=== PATIENT | female | born 1980 | race Caucasian/White ===

== ENCOUNTER → 2023-09-10 12:47 | Outpatient (BNVA) | payer MEDICARE, SELFPAY | PROVIDERS: Visit Provider Podiatrist Foot & Ankle Surgery | DX: S90.852A Superficial foreign body, left foot, initial encounter; W22.8XXA Striking against or struck by other objects, initial encounter | CPT/HCPCS: 99204 ==

== ENCOUNTER 2023-09-16 07:25 | Day surgery (SDC) | payer MEDICARE, SELFPAY ==
[2023-09-16] VITALS (10 sets, daily range): BP systolic 101–154; BP diastolic 44–78; PULSE 50–70; RESP 16–20; TEMP 36.2–36.4; O2SAT 95–100; BMI 25.6
--- NOTE | 2023-09-16 | XR_ITS ---
WS: [id number] Exam: XR foot LT 2V [id number] Date/Time of Exam: 09/16/2023 12:00 AM Reason For Exam: OR PICS Comparison 09/04/2023 with outside radiographs of the LEFT foot. Intraoperative AP and lateral images of the LEFT hindfoot are submitted. Images depict successful rem oval of the metallic foreign body resembling that of a needle in the plantar soft tissues along the c alcaneus.
[2023-09-16] MEDS: gabapentin 300 mg Capsule PO (07:53)
[2023-09-16] MEDS: acetaminophen 1,000 MG/100 ML PIGGYBACK 400 MG IV (07:53)
[2023-09-16] MEDS: sodium chloride 0.9% 1,000 ML 30 ML IV (07:56)
[2023-09-16 08:00] LABS: OR HCG Qualitative Urine Negative (Negative)
--- NOTE | 2023-09-16 08:51 | ANES.PREANE2 ---
Pre-Anesthetic Assessment Height/Weight: Height 1.57 m Weight 63.503 kg Temp Pulse Resp BP Pulse Ox O2 Del Method 97.2 F L 66 16 154/67 99 Room Air 09/16/23 07:42 09/16/23 07:42 09/16/23 07:42 09/16/23 07:42 09/16/23 07:42 09/16/23 07:42 Preop Diagnosis: Foreign body left foot Operation Date: 09/16/23 09:15 Proposed Procedures p Foreign Body Removal/?Removal of deep foreign body left foot(Left) - Po Pacheco DPM Familial anesthetic complications: Nausea Was Beta Oliva taken within 24 hours: N/A Was Clonidine taken within 24 hours: N/A Last intake: Intake Last Liquid Date 09/15/23 Last Liquid Time 22:00 Last Solid Date 09/15/23 Last Solid Time 18:00 Social Tobacco and No alcohol Exam alert, oriented x 3, clear to auscultation bilaterally and regular rate & rhythm Airway Mallampati: Class I Dentition: false Anesthetic Plan ASA status: 1 Anesthesia: MAC Risk of > 500 ml blood loss (7ml/kg in children): No Medications/Allergies Home Medications Medication Instructions Recorded Confirmed Last Taken Type No Known Home Medications 09/15/23 09/15/23 Unknown History Allergies Allergy/AdvReac Type Severity Reaction Status Date / Time antidepressants Allergy Intermediate ADR/ALGY-Pa Uncoded 09/15/23 10:35 lpitations Current Medications Generic Name Dose Route Start Last Admin Trade Name Freq PRN Reason Stop Dose Admin Sodium Chloride 1,000 mls @ 30 mls/hr 09/16/23 07:45 09/16/23 07:56 Sodium Chloride 0.9% IV 09/17/23 07:44 30 mls/hr .Q24H IVA Administration PFSH Anesthesia Family History Grandmother Breast cancer Paternal Stroke maternal Mother Colon cancer Liver cancer Lung cancer Father Hypertension Hyperchloremia Heart disease Denies family history of Ovarian cancer Diabetes Family history of thyroid problem Uterine cancer Data Anesthesia Cardiac Studies: No Data to Display
--- NOTE | 2023-09-16 09:33 | W.PM.OPSUD ---
Surgery/Procedure H&P Update DATE OF PROCEDURE: September 16, 2023 DATE H&P PERFORMED: 09/10/23 H&P UPDATE INFORMATION: I have reviewed H&P completed within last 30 days, I have examined patient prior to procedure, No changes to prior documentation and [place] [facility] [place] indicated PREOP DIAGNOSIS: Foreign body left foot PLANNED PROCEDURE: Operation Date: 09/16/23 09:15 Proposed Procedures p Foreign Body Removal/?Removal of deep foreign body left foot(Left) - Po Pacheco DPM
[2023-09-16] MEDS: ceFAZolin 2,000 MG in sodium chloride 0.9% (plus) 50 ML 100 MG IV (09:50)
[2023-09-16] MEDS: BUPivacaine 0.5% INJ 30 mL 20 ML INJECTION (10:09)
--- NOTE | 2023-09-16 10:19 | P.BOP_ITS ---
Date of procedure: 09/16/2023 Surgeon name: Dr. Po Pacheco D.P.M. Rehabilitation Liaison(s) name(s): Norma Procedure(s) performed: Foreign body removal left foot Description of findings: Metallic foreign body removal left foot Estimated blood loss: Less than 5 cc Tourniquet time: 9 minutes Specimen(s) removed: Foreign body left foot Post-operative diagnosis: Foreign body left foot
--- NOTE | 2023-09-16 10:20 | P.OP_ITS ---
Operative Report Date of procedure: September 16, 2023 Pre-op diagnosis: Foreign body left foot Post-op diagnosis: Same Post-op findings: Metallic foreign body left foot Procedure done: Foreign body removal left foot CPT 69079 Specimens removed/disposition: Metallic foreign body left foot Surgeon: Po Pacheco DPM Cracking Still Operator: Norma Estimated blood loss: Less than 5 cc 9 minutes Complications: None Findings: See above Procedure: Patient is a 43-year-old female that has a history of foreign body left foot. The patient has had the aforementioned chief complaint for some time. Conservative treatment measures have been attempted and the patient has opted for surgical intervention at this time. A lengthy discussion regarding the procedure, including risks and complications has been had with the patient and is noted in the recent clinic note. Written and verbal consent have been obtained. All patient questions have been answered to the patient?s satisfaction. No written or verbal guarantees have been given or implied. The patient has been NPO since midnight. The history has been reviewed and the history and physical is current. The signed consent was confirmed and placed in the patient chart. Patient imaging has been reviewed and is consistent with the diagnosis. Under mild sedation, the patient was brought into the operating room and placed on the table in the supine position. IV antibiotics were given by the anesthesia team as preoperative surgical prophylaxis. General sedation was then performed by the anesthesiateam. A local field block was then performed using 0.5% Marcaine plain. A pneumatic tourniquet was then placed about the left ankle. The operative extremity was then prepped and draped in the usual fashion. The extremity was then elevated and exsanguinated before the tourniquet was inflated to 250 mmHg. After inflation, the following procedure was then performed. Attention was directed to the plantar aspect of the left foot. Under tr iangulation via C-arm fluoroscopy the site of the foreign body was marked out using a skin marker. Next, a #15 blade was used to make a stab incision on the plantar aspect of left foot. Blunt dissection was carried down through subcutaneous the superficial fascia using a mosquito hemostat. Next under live fluoroscopy the hemostat was used to grasp the foreign body and it was removed from the foot and passed from the operative field. It was black and metallic in nature. No underlying abscess was appreciated. The site was irrigated with copious amounts sterile saline. No foreign body was retained in the foot based on fluoroscopy. The incision was then closed using 3-0 nylon and horizontal mattress fashion. The incision site was dressed with Xeroform, 4 x 4 gauze, Kerlix, Lv. The tourniquet was let down good hyperemic response was noted all digits of the left foot. The patient tolerated the procedure and anesthesia well and without complication. The patient was transported from the operating room to the recovery room with vital signs stable and vascular status intact to all digits of the left foot. The patient was given both written and verbal instructions to remain weightbearing as tolerated in postop shoe to the operative extremity, to keep dressings/splint clean, dry and intact and to take pain medication as directed. The patient will follow-up in the outpatient setting at their scheduled appointment. The patient was discharged with my personal number and was instructed to call if any questions or issues should arise. They were discharged home once anesthesia criteria was met.
--- NOTE | 2023-09-16 11:45 | ANE.PACU2 ---
Inpatient post-anesthesia follow up: Airway intact: Yes Vital signs: Temperature 97.2 F Pulse Rate 59 Respiratory Rate 16 Blood Pressure 143/73 Pulse Oximetry 98 Oxygen Delivery Me thod Room Air Oxygen Flow Rate Fraction of Inspir ed Oxygen Hydration adequate: Yes Nausea and vomiting: No Pain level: 1 Mental status: Baseline
== END 2023-09-16 11:45 | disposition home or self-care (01) ==
PROVIDERS: Anesthesiology; PCP Family Medicine; Visit Provider Podiatrist Foot & Ankle Surgery
PROC: (CPT 28192; principal; 2023-09-16 09:05)
DX: S91.342A Puncture wound with foreign body, left foot, initial encounter (principal); W22.8XXA Striking against or struck by other objects, initial encounter
CPT/HCPCS: 28192; 73620; 76000; 81025; 84703; 88300; J0131; J0690; J1100; J2250; J2405; J2704; J3010; J3490; J7030